=== PATIENT | male | born 1985 | race Caucasian/White ===

== ENCOUNTER 2018-07-30 20:58 | Emergency (ER) | payer OTHER ==
[~2018-07-30] VITALS: Ht 167.6 cm; Wt 68.1 kg
[2018-07-30] MEDS ORDERED: PROPOFOL 10 MG/ML, 20ML ONE ×5 (21:57→22:35)
[2018-07-30] MEDS ORDERED: PROPOFOL 10 MG/ML, 20ML IVPush ONE (22:00)
[2018-07-30 23:47] VITALS: BP 117/62
== END 2018-07-30 23:50 | disposition home or self-care (01) ==
LOC: ED 23:15
DX: T18.120A Food in esophagus causing compression of trachea, initial encounter (principal); X58.XXXA Exposure to other specified factors, initial encounter; Y93.89 Activity, other specified; Y92.89 Other specified places as the place of occurrence of the external cause; Y99.8 Other external cause status
CPT/HCPCS: 88305; 99152; 99153; 99285